=== PATIENT | male | born 1980 | race Caucasian/White ===

== ENCOUNTER 2022-03-27 09:40 | Outpatient (REF) | payer BC, SELFPAY ==
[2022-03-27 10:55] LABS: Appearance Urine CLEAR; Color Urine YELLOW; Glucose Urine UA NEG (NEG); Leukocyte Esterase Urine NEG (NEG); Nitrite Urine NEG (NEG); PH 7.5 (5.0-8.0); Urine Blood NEG (NEG); Urine Ketones NEG (NEG); Urine Protein NEG (NEG-TRACE)
[2022-03-27 11:04] LABS: Hematocrit 42.5 % (42.0-52.0); Hemoglobin 14.3 g/dl (14.0-18.0); Mean Corpuscular HGB Conc 33.6 g/dl (31.0-36.0); Mean Corpuscular Hemoglobin 30.4 pg (27.0-33.0); Mean Corpuscular Volume 90.2 fL (80.0-98.0); Mean Platelet Volume 9.4 fL (9.4-12.4); Platelet Count 262 X10*3/uL (160-400); Red Blood Count 4.71 X10*6/uL (4.60-5.80); White Blood Count 7.9 X10*3/uL (4.8-10.8)
[2022-03-27 11:57] LABS: Thyroid Stimulating Hormone 0.57 uIU/mL (0.32-4.0)
[2022-03-27 12:05] LABS: Alanine Aminotransferase 25 U/L (0-40); Albumin Level 4.4 g/dL (3.5-5.0); Alkaline Phosphatase 66 U/L (39-117); Anion Gap 12 (12-20); Aspartate Amino Transferase 19 U/L (5-37); Bilirubin Direct 0.3 mg/dL (0.0-0.5); Bilirubin Total 0.7 mg/dL (0.0-1.0); Blood Urea Nitrogen 16 mg/dL (9-16); Calcium 9.8 mg/dL (8.4-10.2); Carbon Dioxide 25 mmol/L (22-29); Chloride 106 mmol/L (96-108); Cholesterol 163 mg/dL; Estimated Glomerular Filt Rate > 60; Glucose Random 83 mg/dL (60-115); HDL Cholesterol 62 mg/dL; LDL Cholesterol Calculated 88 mg/dl; Potassium 4.4 mmol/L (3.3-5.1); Sodium 139 mmol/L (135-145); Total Protein 7.3 g/dL (6.5-8.0); Triglycerides 69 mg/dL
== END 2022-03-27 09:41 | disposition home or self-care (01) ==
LOC: HO.LAB 09:40
PROVIDERS: PCP Internal Medicine; Visit Provider Internal Medicine
DX: E78.00 Pure hypercholesterolemia, unspecified (principal); I10 Essential (primary) hypertension
CPT/HCPCS: 36415; 80048; 80061; 80076; 81003; 84443; 85027

== ENCOUNTER 2022-10-03 09:45 | Outpatient (REF) | payer BC, SELFPAY ==
[2022-10-03 11:02] LABS: Hematocrit 44.4 % (42.0-52.0); Hemoglobin 14.6 g/dl (14.0-18.0); Mean Corpuscular HGB Conc 32.9 g/dl (31.0-36.0); Mean Corpuscular Hemoglobin 30.2 pg (27.0-33.0); Mean Corpuscular Volume 91.7 fL (80.0-98.0); Mean Platelet Volume 9.3 fL (9.4-12.4); Platelet Count 270 X10*3/uL (160-400); Red Blood Count 4.84 X10*6/uL (4.60-5.80); Red Cell Distribution Width 11.9 % (11.0-16.0); White Blood Count 7.3 X10*3/uL (4.8-10.8)
[2022-10-03 11:59] LABS: Alanine Aminotransferase 38 U/L (0-40); Albumin Level 4.6 g/dL (3.5-5.0); Alkaline Phosphatase 75 U/L (39-117); Anion Gap 12 (12-20); Aspartate Amino Transferase 19 U/L (5-37); Bilirubin Direct 0.3 mg/dL (0.0-0.5); Bilirubin Total 0.8 mg/dL (0.0-1.0); Blood Urea Nitrogen 12 mg/dL (9-16); Carbon Dioxide 29 mmol/L (22-29); Chloride 102 mmol/L (96-108); Cholesterol 201 mg/dL; Estimated Glomerular Filt Rate > 60; Glucose Random 80 mg/dL (60-115); HDL Cholesterol 59 mg/dL; LDL Cholesterol Calculated 118 mg/dl; Potassium 4.5 mmol/L (3.3-5.1); Sodium 138 mmol/L (135-145); Total Protein 7.4 g/dL (6.5-8.0); Triglycerides 122 mg/dL
== END 2022-10-03 09:46 | disposition home or self-care (01) ==
LOC: HO.LAB 09:45
PROVIDERS: PCP Internal Medicine; Visit Provider Internal Medicine
DX: E78.00 Pure hypercholesterolemia, unspecified (principal); I10 Essential (primary) hypertension
CPT/HCPCS: 36415; 80048; 80061; 80076; 84443; 85027

== ENCOUNTER 2024-01-08 08:33 | Outpatient (AMB) | payer BC, SELFPAY ==
--- NOTE | 2024-01-08 08:37 | A.OFFPC_ITS ---
Vital Signs 01/08/24 08:38 Height 6 ft 2 in Weight 211 lb 2 oz BMI 27.1 BP 120/74 Blood Pressure Location Lt brachial Position Sitting Pulse 64 Pulse Source Pulse Oximeter Pulse Oximetry (%) 95 Oxygen Delivery Method Room Air Intake Visit Reasons: Physical exam Intake Note: Patient is here today for a physical. Spinning Frame Fixer Required: No Nurse Behavioral Health Care: Not Required per policy Accompanied by: Self / Same As Patient Allergies No Known Allergies Allergy (Verified 01/08/24 08:59) Medication List - Last Reconciled 01/08/24 by Jose Maldonado MD atorvastatin 10 mg PO DAILY enalapril maleate 5 mg PO DAILY Tobacco use date assessed: 01/08/24 Dental Screening Dental Screen Date: 01/08/24 Did you have a dental visit in the last 12 months?: No Did you have a dental problem in the last 6 months where you did not have access to dental care?: No Was dental information given to patient?: Patient has dentist HPI Physical exam HPI Details 43-year-old male presents to the office requesting an annual physical. Patient's father was recently diagnosed with prostate cancer. He would also lik e to get an early screening for colon cancer. [facility] Medical History High cholesterol Hypertension Surgical History No pertinent past surgical history Family History Father Prostate cancer Past heart attack Mother Stroke Son In good health Son In good health Son In good health Sister In good health Sister In good health Sister In good health Other Substance use disorder Social History Housing: House Alcohol intake: current Alcohol intake frequency: a few times a week Patient Tobacco Use Status: Never used Tobacco e-Cigarette/Vaping Use: Never Used Second Hand Smoke Exposure: No service: No Current occupational status: employed Current occupation: Contractor Cognitive needs: No Hearing needs: No Vision needs: Yes (glasses) Questionnaire PHQ-9 Over the last 2 weeks, how often have you been bothered by any of the following problems? 1. Little interest or pleasure in doing things: not at all 2. Feeling down, depressed, or hopeless: not at all 3. Trouble falling or staying asleep, or sleeping too much: not at all 4. Feeling tired or having little energy: not at all 5. Poor appetite or overeating: not at all 6. Feeling bad about yourself - or that you are a failure or have let yourself or your family down: not at all 7. Trouble concentrating on things, such as reading the newspaper or watching television: not at all 8. Moving or speaking so slowly that other people could have noticed. Or the opposite - being so fidgety or restless that you have been moving around a lot more than usual: not at all 9. Thoughts that you would be better off or of hurting yourself in some way: not at all Total score: 0 Depression Screening Interpretation: Negative Depression Screening Done: Yes Source: Developed by Drs. Jurgen Gonsales, oNrma Das, Ronni Nur and colleagues, with an educational traci from [employer]. Thrive Questionnaire Date Thrive assessed: 01/08/24 I am a: Patient What is your living situation today?: I have a steady place to live Within the past 12 months, did the food you bought not last and you didn't have the money to get more?: Never true Within the past 12 months, did you worry whether your food would run out before you got money to buy more?: Never true Do you have trouble paying for medicines?: No Do you have trouble getting transportation to medical appointments?: No Do you have trouble paying your heating and electricity bill?: No Do you have trouble taking care of your child, family member or friend?: No Do you have trouble with day-to-day activities such as bathing, preparing meals, shopping, managing finances, etc.?: No Are you currently unemployed and looking for a job?: No Are you interested in more education?: No Currently or been in a relationship where the following occur: no concerns reported THRIVE Score: 0 AUDIT C Alcohol Use Questionnaire (AUDIT-C) 1. How often do you have a drink containing alcohol?: Monthly or less 2. How many drinks containing alcohol do you have on a typical day when you are drinking?: 1 or 2 Total Score: 1 ALYCE-7 AMB Questionnaire ALYCE-7 Date ALYCE - 7 assessed: 01/08/24 Feeling nervous, anxious, or on edge: 0 = Not at all Not being able to stop or control worryin = Not at all Worrying too much about different things: 0 = Not at all Trouble relaxin = Not at all Being so restless that it is hard to sit still: 0 = Not at all Becoming easily annoyed or irritable: 0 = Not at all Feeling afraid as if something awful might happen: 0 = Not at all Total ALYCE-7 score (0-4 normal; 5-9 mild; 10-14 moderate; 15-21 severe): 0 Source: Developed by Drs. Jurgen Gonsales, Norma Das, Ronni Nur and colleagues, with an educational traci from [employer]. Physical exam (Primary Care) Vital Signs: Last Vital Signs Pulse 64 01/08/24 08:38 BP 120/74 01/08/24 08:38 Pulse Ox 95 01/08/24 08:38 Oxygen Delivery Method Room Air 01/08/24 08:38 BMI result Body Mass Index 27.1 Tobacco/Smoking Status: Tobacco use Status Tobacco use date assessed 01/08/24 01/08/24 08:42 Patient Tobacco Use Status Never used Tobacco 01/08/24 08:42 e-Cigarette/Vaping Use Never Used 01/08/24 08:42 PHQ-9: PHQ-9 Score PHQ-9: Total score 0 01/08/24 08:42 Depression Screening Interpretation: Negative Thrive Assessment: Date of Thrive Assessment Date Thrive assessed 01/08/24 01/08/24 08:42 Currently or been in a relationship where the following occur: no concerns reported Const General: cooperative and healthy appearing Nutritional Appearance: well nourished Orientation/consciousness: patient oriented x3 Limitations: no limitations HENMT Head: Yes normal to inspection Eyes General: appearance normal, both eyes and all related structures Neck Neck: Yes normal visual inspection Chest Chest palpation & inspection: normal palpation of entire chest wall Resp Effort & Inspection: normal respiratory effort Other: Scrotum: Normal. Testicles: Normal. Neuro General: patient oriented x3 Assessment and Plan Assessment & Plan (1) Hypertension: Code(s): I10 - Essential (primary) hypertension Plan: Blood pressure in range. Continue current medications. (2) High cholesterol: Code(s): E78.00 - Pure hypercholesterolemia, unspecified Plan: Blood work has been ordered. (3) Annual physical exam: Code(s): Z00.00 - Encounter for general adult medical examination without abnormal findings Plan: Will call with results of blood work. Orders: Orders Complete Blood Count no Diff Today E78.00 - Pure hypercholesterolemia, unspecified, I10 - Essential (primary) hypertension Liver Panel Today E78.00 - Pure hypercholesterolemia, unspecified, I10 - Essential (primary) hypertension Basic Metabolic Panel Today E78.00 - Pure hypercholesterolemia, unspecified, I10 - Essential (primary) hypertension Lipid Panel Today E78.00 - Pure hypercholesterolemia, unspecified, I10 - Essential (primary) hypertension Prostate Specific Antigen Scr Today E78.00 - Pure hypercholesterolemia, unspecified, I10 - Essential (primary) hypertension UA and rflx microscopic Today E78.00 - Pure hypercholesterolemia, unspecified, I10 - Essential (primary) hypertension Thyroid Stimulating Hormone Today E78.00 - Pure hypercholesterolemia, unspecified, I10 - Essential (primary) hypertension Referrals Gastroenterology Referral Z12.11 - Encounter for screening for malignant neoplasm of colon Coding Level of Care Code Est Pt Prev Care 40-64y(21957) Diagnoses Hypertension I10 High cholesterol E78.00 Annual physical exam Z00.00
[2024-01-08 08:38] VITALS: BP 120/74; PULSE 64; O2SAT 95; BMI 27.1
== END 2024-01-08 08:51 | disposition home or self-care (01) ==
PROVIDERS: PCP Internal Medicine; Visit Provider Internal Medicine
DX: I10 Essential (primary) hypertension (principal); E78.00 Pure hypercholesterolemia, unspecified; Z00.00 Encounter for general adult medical examination without abnormal findings
CPT/HCPCS: 99396

== ENCOUNTER 2024-01-08 09:05 | Outpatient (REF) | payer BC, SELFPAY ==
[2024-01-08 09:38] LABS: Hematocrit 44.7 % (42.0-52.0); Mean Corpuscular HGB Conc 33.6 g/dl (31.0-36.0); Mean Corpuscular Hemoglobin 29.7 pg (27.0-33.0); Mean Corpuscular Volume 88.5 fL (80.0-98.0); Mean Platelet Volume 8.9 fL (9.4-12.4); Platelet Count 253 X10*3/uL (160-400); Red Blood Count 5.05 X10*6/uL (4.60-5.80); Red Cell Distribution Width 12.2 % (11.0-16.0); White Blood Count 6.7 X10*3/uL (4.8-10.8)
[2024-01-08 10:31] LABS: Appearance Urine Clear; Color Urine Yellow; Glucose Urine UA Negative (Negative); Leukocyte Esterase Urine Negative (Negative); Nitrite Urine Negative (Negative); PH 7.5 (5.0-9.0); Urine Blood Negative (Negative); Urine Ketones Negative (Negative); Urine Protein Negative (Neg-Trace)
[2024-01-08 10:56] LABS: Prostate Specific Antigen Scr 0.76 ng/mL (<0.05-4.0)
[2024-01-08 10:57] LABS: Alanine Aminotransferase 35 U/L (0-40); Albumin Level 4.6 g/dL (3.5-5.0); Alkaline Phosphatase 68 U/L (39-117); Anion Gap 11 (12-20); Aspartate Amino Transferase 21 U/L (5-37); Bilirubin Direct 0.2 mg/dL (0.0-0.5); Blood Urea Nitrogen 16 mg/dL (9-16); Calcium 9.8 mg/dL (8.4-10.2); Carbon Dioxide 25 mmol/L (22-29); Chloride 107 mmol/L (96-108); Cholesterol 201 mg/dL (<200); Estimated Glomerular Filt Rate > 60; Glucose Random 89 mg/dL (60-115); HDL Cholesterol 63 mg/dL (>40); LDL Cholesterol Calculated 118 mg/dL (<100); Potassium 4.1 mmol/L (3.3-5.1); Sodium 139 mmol/L (135-145); Total Protein 7.5 g/dL (6.5-8.0); Triglycerides 101 mg/dL (<150)
[2024-01-08 11:09] LABS: Bilirubin Total 0.8 mg/dL (0.0-1.0); Thyroid Stimulating Hormone 0.73 uIU/mL (0.32-4.0)
== END 2024-01-08 09:06 | disposition home or self-care (01) ==
LOC: HO.LAB 09:05
PROVIDERS: PCP Internal Medicine; Visit Provider Internal Medicine
DX: Z12.5 Encounter for screening for malignant neoplasm of prostate (principal); I10 Essential (primary) hypertension; E78.00 Pure hypercholesterolemia, unspecified
CPT/HCPCS: 36415; 80048; 80061; 80076; 81003; 84153; 84443; 85027

== ENCOUNTER 2024-03-30 07:26 | Outpatient (AMB) | payer BC, SELFPAY ==
--- NOTE | 2024-03-30 07:39 | A.OFFVIS_ITS ---
Vital Signs 03/30/24 07:41 Height 6 ft 2 in Weight 202 lb BMI 25.9 BP 124/70 Blood Pressure Location Lt brachial Position Sitting Pulse 70 Intake Visit Reasons: Colonoscopy screening Intake Note: Patient new consult for 1st pre colonoscopy screening. Patient denies any GI issues. Correction Officer Head Required: No Allergies No Known Allergies Allergy (Verified 03/30/24 07:38) Medication List - Last Reconciled 03/30/24 by Naila Nina PA-C atorvastatin 10 mg PO DAILY enalapril maleate 5 mg PO DAILY HPI Comments Details: A 44 y/o male referred for index screening colonoscopy Normal bowels- Appetite good No respiratory or cardiac issues Works full-time contractor No nausea, vomiting, abdominal pain, hematemesis, hematochezia fever or chills No known family history of GI cancers PFSH Medical History (Updated 03/30/24 @ 08:44 by Naila Nina PA-C) High cholesterol Hypertension Surgical History Hx of removal of cyst History of vasectomy No pertinent past surgical history Family History Father Prostate cancer Past heart attack Mother Stroke Son In good health Son In good health Son In good health Sister In good health Sister In good health Sister In good health Other Substance use disorder Social History Housing: House Alcohol intake: current Alcohol intake frequency: a few times a week Patient Tobacco Use Status: Never used Tobacco e-Cigarette/Vaping Use: Never Used Second Hand Smoke Exposure: No service: No Current occupational status: employed Current occupation: Contractor Cognitive needs: No Hearing needs: No Vision needs: Yes (glasses) Review of Systems Const All systems reviewed & are unremarkable except as noted in HPI and below Card Denies chest pain and Denies dyspnea Resp Denies dyspnea GI Denies abdominal pain, Denies change in bowel habits and Denies heartburn Physical Exam Vital Signs: Last Vital Signs Pulse 70 03/30/24 07:41 BP 124/70 03/30/24 07:41 BMI result Body Mass Index 25.9 Const General: cooperative, healthy appearing, comfortable and no acute distress Orientation/consciousness: patient oriented x3 Limitations: no limitations Eyes Sclerae: sclerae normal Resp Effort & Inspection: normal respiratory effort and able to speak in complete sentences Auscultation: clear to auscultation bilaterally, no rales, no rhonchi and no wheezes Cardio Rate: regular rate Rhythm: regular rhythm Heart sounds: S1 normal heart sound present and S2 normal heart sound present GI Palpation (GI): Soft to palpation and nontender Auscultation: normal bowel sounds Skin General skin exam: no rashes or lesions noted Neuro General: patient oriented x3 Extrem General: Yes full ROM Psych Appearance: grossly normal and well kempt Mental Status: mental status grossly normal Speech and movement: Normal speech and movement present and Clear speech present Affect: normal affect Attitude: cooperative Thought process: Normal thought process present Thought content: Normal thought content present Insight: Good insight present (Psych) Judgement: Good judgement present (Psych) Assessment & Plan Assessment & Plan (1) Encounter for screening colonoscopy: Comment: Discussed indication, procedure, rare risks, need for escorted due to anesthesia, and prep Code(s): Z12.11 - Encounter for screening for malignant neoplasm of colon Category: Medical Plan: Index screening colonoscopy MiraLax Gatorade prep Plan Index screening colonoscopy MiraLax Gatorade prep Orders: Orders Colonoscopy - GI Use Only Today Z12.11 - Encounter for screening for malignant neoplasm of colon Medications: New bisacodyl (Dulcolax (bisacodyl)) Day before procedure @ 12 noon Take 4 tablets by mouth followed by large glass of water 20 mg (4 x 5 mg) PO ONCE PRN 4 tabs 0RF colonoscopy prep 1 day Z12.11 - Encounter for screening for malignant neoplasm of colon polyethylene glycol 3350 (Miralax) Take as directed by mouth the day before your procedure. 238 grams PO ONCE PRN 238 grams 0RF laxative effect 1 day Patient Instructions: Index screening colonoscopy MiraLax Gatorade prep, reviewed literature given Encouraged to call questions or concerns Coding Level of Care Code New Pt Level 3 (04090) Diagnoses Encounter for screening colonoscopy Z12.11 Time Spent (min) 25
[2024-03-30 07:41] VITALS: BP 124/70; PULSE 70; BMI 25.9
== END 2024-03-30 08:59 | disposition home or self-care (01) ==
PROVIDERS: PCP Internal Medicine; Visit Provider Physician Assistant
DX: Z01.818 Encounter for other preprocedural examination (principal); Z12.11 Encounter for screening for malignant neoplasm of colon
CPT/HCPCS: S0285

== ENCOUNTER → 2024-03-30 07:26 | Outpatient (BNVA) | payer BC, SELFPAY | PROVIDERS: PCP Internal Medicine; Visit Provider Physician Assistant ==

== ENCOUNTER 2024-07-15 08:15 | Outpatient (AMB) | payer BC, SELFPAY ==
--- NOTE | 2024-07-15 08:25 | A.OFFPC_ITS ---
Vital Signs 07/15/24 08:27 Height 6 ft 2 in Weight 204 lb BMI 26.2 BP 128/86 Blood Pressure Location Lt brachial Position Sitting Pulse 63 Pulse Source Pulse Oximeter Pulse Oximetry (%) 96 Oxygen Delivery Method Room Air Intake Visit Reasons: 6mth f/u Medical Records Analyst Required: No Accompanied by: Self / Same As Patient Allergies No Known Allergies Allergy (Verified 07/15/24 08:27) Tobacco use date assessed: 01/08/24 Dental Screening Dental Screen Date: 01/08/24 HPI 6mth f/u HPI Details 44-year-old male presents to the office to discuss his chronic medical conditions. Patient is compliant with medications and reporting no side effects. Able to function and do all activities of daily living. Exercises regularly. [facility], [facility] Medical History High cholesterol Hypertension Surgical History Hx of removal of cyst History of vasectomy No pertinent past surgical history Family History Father Prostate cancer Past heart attack Mother Stroke Son In good health Son In good health Son In good health Sister In good health Sister In good health Sister In good health Other Substance use disorder Social History Housing: House Alcohol intake: current Alcohol intake frequency: a few times a week Patient Tobacco Use Status: Never used Tobacco e-Cigarette/Vaping Use: Never Used Second Hand Smoke Exposure: No service: No Current occupational status: employed Current occupation: Contractor Current occupational exposures/hazards: No Cognitive needs: No Hearing needs: No Vision needs: Yes (glasses) Questionnaire Thrive Questionnaire Date Thrive assessed: 01/08/24 ALYCE-7 AMB Questionnaire ALYCE-7 Date ALYCE - 7 assessed: 01/08/24 Source: Developed by Drs. Jurgen Gonsales, Norma Das, Ronni Nur and colleagues, with an educational traci from [employer]. Physical exam (Primary Care) Vital Signs: Last Vital Signs Pulse 63 07/15/24 08:27 BP 128/86 07/15/24 08:27 Pulse Ox 96 07/15/24 08:27 Oxygen Delivery Method Room Air 07/15/24 08:27 BMI result Body Mass Index 26.2 Tobacco/Smoking Status: Tobacco use Status Tobacco use date assessed 01/08/24 07/15/24 08:27 Patient Tobacco Use Status Never used Tobacco 07/15/24 08:27 e-Cigarette/Vaping Use Never Used 07/15/24 08:27 Thrive Assessment: Date of Thrive Assessment Date Thrive assessed 01/08/24 07/15/24 08:27 Const General: cooperative and healthy appearing Nutritional Appearance: well nourished Orientation/consciousness: patient oriented x3 Limitations: no limitations HENMT Head: Yes normal to inspection Eyes General: appearance normal, both eyes and all related structures Neck Neck: Yes normal visual inspection Chest Chest palpation & inspection: normal palpation of entire chest wall Resp Effort & Inspection: normal respiratory effort Neuro General: patient oriented x3 Assessment and Plan Assessment & Plan (1) High cholesterol: Code(s): E78.00 - Pure hypercholesterolemia, unspecified Plan: Encouraged compliance with medications, diet and exercise. BW has been ordered. Will call with results and adjust statin dosage accordingly. (2) Hypertension: Code(s): I10 - Essential (primary) hypertension Plan: BP is in range. Importance of diet and exercise emphasized. Blood work has been ordered. Will call with results Coding Level of Care Code Est Pt Level 4 (20684) Complex EM visit Add On G2211 Diagnoses High cholesterol E78.00 Hypertension I10
[2024-07-15 08:27] VITALS: BP 128/86; PULSE 63; O2SAT 96; BMI 26.2
== END 2024-07-15 08:39 | disposition home or self-care (01) ==
PROVIDERS: PCP Internal Medicine; Visit Provider Internal Medicine
DX: E78.00 Pure hypercholesterolemia, unspecified (principal); I10 Essential (primary) hypertension
CPT/HCPCS: 99214

== ENCOUNTER 2024-09-07 07:10 | Day surgery (SDC) | payer BC, SELFPAY ==
[2024-09-07 08:00] VITALS: BMI 26.9
[2024-09-07 08:09] VITALS: BP 129/87; PULSE 73; RESP 16; TEMP 36.6; O2SAT 98
--- NOTE | 2024-09-07 08:21 | HO.ANESPROP2 ---
HPI - Anesthesia Eval Consult details Narrative: 44 yo M presenting for colonoscopy [facility] Active Problems Active Problems: All Active Problems Encounter for screening colonoscopy (Acute) Annual physical exam (Acute) High cholesterol (Acute) Hypertension (Acute) Past Medical History Medical History High cholesterol Hypertension Family History Family History Father Prostate cancer Past heart attack Mother Stroke Son In good health Son In good health Son In good health Sister In good health Sister In good health Sister In good health Other Substance use disorder Family history of problems with anesthesia: No Surgical History Surgical History (Updated 09/07/24 @ 07:59 by Merry Petty RN) Hx of removal of cyst History of vasectomy History of Problems with Anesthesia: No Social History Social History Housing: House Alcohol intake: current Alcohol intake frequency: a few times a week Patient Tobacco Use Status: Never used Tobacco e-Cigarette/Vaping Use: Never Used Second Hand Smoke Exposure: No Use of substances other than those prescribed or required for medical reasons: Yes Substance Use Type Other:: SOMETIMES Are you DNR?: No Advance Directives: No Advance Directives Information Provided: Yes Advance Directives on File: No Recently lost weight without trying: No Nutrition Risks: No Nutritional Risk Poor oral hygiene: No service: No Current occupational status: employed Current occupation: Contractor Current occupational exposures/hazards: No Cognitive needs: No Hearing needs: No Vision needs: Yes (glasses) Meds Allergies Allergy/AdvReac Type Severity Reaction Status Date / Time No Known Allergies Allergy Verified 07/15/24 08:27 Active Medications: Current Medications Lactated Ringer's (Lr) 1,000 mls @ 80 mls/hr IVCONT .[id number] JHONATAN Exam Exam Date and Time: 09/07/24 0821 Height,Weight and Vital Signs: Height 6 ft 1 in Weight 92.646 kg Last Vital Signs Temp 97.9 F 09/07/24 08:09 Pulse 73 09/07/24 08:09 Resp 16 09/07/24 08:09 BP 129/87 09/07/24 08:09 Pulse Ox 98 09/07/24 08:09 O2 Del Method Room Air 09/07/24 08:09 Airway Mallampati Class: I TM Dist: >3cm Neck ROM: Full Loose/Missing/Broken Teeth: No (patient denies any loose or broken teeth) Heart: S1S2 Lungs: CTAB Assessment and Plan Assessment Anesthesia Assessment: Anesthesia Plan Discussed and Chart Reviewed Final Anesthetic Review Family History of Problems with Anesthesia: No History of Problems with Anesthesia: No NPO: Yes ASA Class: II Final Preanesthetic Review: No Changes in Pt Med Stat, Meds/Allgs Chart Reviewed, Consent Obtained/Reviewed and Anes Risks/Benef Reviewed Patient Risk: Low Procedure Risk: Low Anesthetic Plan Anesthetic Plan: MAC: and Agree w/ Assess. and Plan Disposition: Standard PACU
[2024-09-07] MEDS: Lactated Ringers 1,000 ML 80 ML IVCONT (08:29)
--- NOTE | 2024-09-07 08:47 | MHC.SHP ---
Pre-Procedural Eval Section A - 24 Hr Update-Section A only Date of Service: 09/07/24 Section B - Complete if H&P > 30 days Chief Complaint: Encounter for screening for malignant neoplasm of Details of Present Illness: High cholesterol Hypertension Surgical History Hx of removal of cyst History of vasectomy No pertinent past surgical history Present Medications: see Short Stay Collaborative assessment Allergies: Allergies Allergy/AdvReac Type Severity Reaction Status Date / Time No Known Allergies Allergy Verified 07/15/24 08:27 Review of Systems Review of Systems Comment: Ten point ROS negative Exam Exam Comment: Gen appear: No acute distress HEENT: no icterus Chest: No overt resp distress Abd: soft, nontender, nondistended Psych: Stable affect, answering questions appropriately Neuro: A/Ox3 noted to move all extremities spontaneously Ext: no peripheral edema Plan Diagnosis/Plan: Unchanged I have reviewed the history and physical and performed a pertinent physical examination on my patient. No changes have occurred unless specified. Time Spent With Patient Time: Total time managing care of this patient today ____ minutes.
--- NOTE | 2024-09-07 09:22 | P.OPN-COLO_ITS ---
Colonoscopy Operative Note Operative Note Date of Service: 09/07/24 Narrative: Procedure: Colonoscopy Indication: Screening Endoscopist: Karly Dorantes MD Anesthesia Provider: Christen Joseph CRNA Anesthesia type: MAC Instrument: Olympus [id number] Consent: Indication, risks vs benefits, and alternatives were discussed with the patient who gave written informed consent to proceed. EKG, pulse, pulse oximetry and blood pressure were monitored throughout the procedure. Please see anesthesia flowsheet. Procedure: The patient was brought to the procedure room and placed in the left lateral decubitus position. IV medications were administered by the anesthesia provider in attendance. A digital rectal exam was performed which was abnormal due to finding of hemorrhoids. A distal attachment cap was affixed to the tip of the colonoscope which was then inserted through the anus and advanced through the colon to the cecum at 75 cm,and terminal ileum. Appendiceal orifice and ileocecal valve were identified. Mucosa was carefully examined under high definition white light as the instrument was slowly withdrawn in a retrograde panoramic fashion. Retroflexion was performed in ascending colon and rectum. The procedure was not difficult. There were no immediate obvious complications. The quality of the prep was BBPS: 3+2+3 = adequate Withdrawal time 8 minutes. Limitations: No limitations. Findings: Mucosa: Normal to cecum and terminal ileum. Protruding lesions: * 1 sessile polyp of size 2 mm in sigmoid colon. Cold forceps polypectomy was performed. The polyp was completely removed and retrieved. * Small internal hemorrhoids. Impression: 1. Normal colon and terminal ileum mucosa 2. Total of 1 polyp removed 3. External and internal hemorrhoids Recommendations: - Follow path results. - Repeat colonoscopy in 7-10 years if polyp is an adenoma.
[2024-09-07 09:25] VITALS: BP 115/75; PULSE 83; RESP 16; TEMP 36.9; O2SAT 97
[2024-09-07 09:40] VITALS: BP 122/80; PULSE 72; RESP 14; TEMP 36.4; O2SAT 98
== END 2024-09-07 10:03 | disposition home or self-care (01) ==
PROVIDERS: PCP Internal Medicine; Visit Provider Internal Medicine
PROC: 0DJD8ZZ Inspection of Lower Intestinal Tract, Via Natural or Artificial Opening Endoscopic (ICD-10-PCS; CPT 45378; principal; 2024-09-07 09:10)
DX: Z12.11 Encounter for screening for malignant neoplasm of colon (principal); D12.5 Benign neoplasm of sigmoid colon; K64.8 Other hemorrhoids; K64.4 Residual hemorrhoidal skin tags; I10 Essential (primary) hypertension; E78.5 Hyperlipidemia, unspecified
CPT/HCPCS: 45380; 88305; J2003; J2250; J2704

== ENCOUNTER → 2024-09-07 07:10 | Outpatient (BNV) | payer BC, SELFPAY | PROVIDERS: PCP Internal Medicine; Visit Provider Internal Medicine | DX: Z12.11 Encounter for screening for malignant neoplasm of colon (principal); D12.5 Benign neoplasm of sigmoid colon; K64.8 Other hemorrhoids | CPT/HCPCS: 45380 ==

== ENCOUNTER 2025-01-13 08:18 | Outpatient (REF) | payer BC, SELFPAY ==
[2025-01-13 09:40] LABS: Hemoglobin 14.9 g/dl (14.0-18.0); Mean Corpuscular HGB Conc 34.7 g/dl (31.0-36.0); Mean Corpuscular Hemoglobin 30.6 pg (27.0-33.0); Mean Corpuscular Volume 88.3 fL (80.0-98.0); Mean Platelet Volume 9.2 fL (9.4-12.4); Platelet Count 253 X10*3/uL (160-400); Red Blood Count 4.87 X10*6/uL (4.60-5.80); White Blood Count 6.4 X10*3/uL (4.8-10.8)
[2025-01-13 09:47] LABS: Appearance Urine Clear; Color Urine Yellow; Glucose Urine UA Negative (Negative); Leukocyte Esterase Urine Negative (Negative); Nitrite Urine Negative (Negative); Urine Blood Negative (Negative); Urine Ketones Negative (Negative); Urine Protein Negative (Neg-Trace)
[2025-01-13 10:14] LABS: Alanine Aminotransferase 32 U/L (0-40); Albumin Level 4.5 g/dL (3.5-5.0); Alkaline Phosphatase 66 U/L (39-117); Anion Gap 9 (12-20); Aspartate Amino Transferase 25 U/L (5-37); Bilirubin Direct 0.3 mg/dL (0.0-0.5); Bilirubin Total 0.8 mg/dL (0.0-1.0); Blood Urea Nitrogen 14 mg/dL (9-16); Calcium 9.7 mg/dL (8.4-10.2); Carbon Dioxide 27 mmol/L (22-29); Chloride 108 mmol/L (96-108); Cholesterol 176 mg/dL (<200); Estimated Glomerular Filt Rate > 60; Glucose Random 86 mg/dL (60-115); HDL Cholesterol 70 mg/dL (>40); LDL Cholesterol Calculated 89 mg/dL (<100); Potassium 4.2 mmol/L (3.3-5.1); Sodium 140 mmol/L (135-145); Total Protein 7.6 g/dL (6.5-8.0); Triglycerides 85 mg/dL (<150)
[2025-01-13 10:34] LABS: Thyroid Stimulating Hormone 0.42 uIU/mL (0.32-4.0)
== END 2025-01-13 08:19 | disposition home or self-care (01) ==
LOC: HO.LAB 08:18
PROVIDERS: PCP Internal Medicine; Visit Provider Internal Medicine
DX: E78.00 Pure hypercholesterolemia, unspecified (principal); I10 Essential (primary) hypertension
CPT/HCPCS: 36415; 80048; 80061; 80076; 81003; 84443; 85027

== ENCOUNTER 2025-01-13 08:18 | Outpatient (AMB) | payer BC, SELFPAY ==
--- NOTE | 2025-01-13 08:31 | A.OFFPC_ITS ---
Vital Signs 01/13/25 08:33 Height 6 ft 1 in Weight 207 lb BMI 27.3 BP 120/72 Blood Pressure Location Lt brachial Position Sitting Pulse 61 Pulse Source Pulse Oximeter Temp 97.7 F Temp Source Temporal Artery Scan Pulse Oximetry (%) 96 Oxygen Delivery Method Room Air Intake Visit Reasons: 6 month follow up Intake Note: Patient is here to follow up on HTN, High cholesterol. Hole Digger Required: No Software Engineering Associate Manager: Not Required per policy Accompanied by: Self / Same As Patient Allergies No Known Allergies Allergy (Verified 01/13/25 08:33) Tobacco use date assessed: 01/13/25 Dental Screening Dental Screen Date: 01/13/25 Did you have a dental visit in the last 12 months?: No Did you have a dental problem in the last 6 months where you did not have access to dental care?: No Was dental information given to patient?: No PFSH Medical History High cholesterol Hypertension Surgical History History of colonoscopy with polypectomy (~09/07/24) Hx of removal of cyst History of vasectomy Family History Father Prostate cancer Past heart attack Mother Stroke Son In good health Son In good health Son In good health Sister In good health Sister In good health Sister In good health Other Substance use disorder Social History Housing: House Alcohol intake: current Alcohol intake frequency: a few times a week Patient Tobacco Use Status: Never used Tobacco e-Cigarette/Vaping Use: Never Used Second Hand Smoke Exposure: No service: No Current occupational status: employed Current occupation: Contractor Current occupational exposures/hazards: No Cognitive needs: No Hearing needs: No Vision needs: Yes (glasses) Questionnaire PHQ-9 Over the last 2 weeks, how often have you been bothered by any of the following problems? 1. Little interest or pleasure in doing things: not at all 2. Feeling down, depressed, or hopeless: not at all 3. Trouble falling or staying asleep, or sleeping too much: not at all 4. Feeling tired or having little energy: not at all 5. Poor appetite or overeating: not at all 6. Feeling bad about yourself - or that you are a failure or have let yourself or your family down: not at all 7. Trouble concentrating on things, such as reading the newspaper or watching television: not at all 8. Moving or speaking so slowly that other people could have noticed. Or the opposite - being so fidgety or restless that you have been moving around a lot more than usual: not at all 9. Thoughts that you would be better off or of hurting yourself in some way: not at all Total score: 0 Depression Screening Interpretation: Negative Depression Screening Done: Yes Source: Developed by Drs. Jurgen Gonsales, Norma Das, Ronni Nur and colleagues, with an educational traci from [employer]. Thrive Questionnaire Date Thrive assessed: 01/13/25 I am a: Patient What is your living situation today?: I have a steady place to live Within the past 12 months, did the food you bought not last and you didn't have the money to get more?: Never true Within the past 12 months, did you worry whether your food would run out before you got money to buy more?: Never true Do you have trouble paying for medicines?: No Do you have trouble getting transportation to medical appointments?: No Do you have trouble paying your heating and electricity bill?: No Do you have trouble taking care of your child, family member or friend?: No Do you have trouble with day-to-day activities such as bathing, preparing meals, shopping, managing finances, etc.?: No Are you currently unemployed and looking for a job?: No Are you interested in more education?: No Please select the resources that you would like help with: None Currently or been in a relationship where the following occur: No concerns reported THRIVE Score: 0 AUDIT C Alcohol Use Questionnaire (AUDIT-C) 1. How often do you have a drink containing alcohol?: Monthly or less 2. How many drinks containing alcohol do you have on a typical day when you are drinking?: 1 or 2 Total Score: 1 ALYCE-7 AMB Questionnaire ALYCE-7 Date ALYCE - 7 assessed: 01/13/25 Feeling nervous, anxious, or on edge: 0 = Not at all Not being able to stop or control worryin = Not at all Worrying too much about different things: 0 = Not at all Trouble relaxin = Not at all Being so restless that it is hard to sit still: 0 = Not at all Becoming easily annoyed or irritable: 0 = Not at all Feeling afraid as if something awful might happen: 0 = Not at all Total ALYCE-7 score (0-4 normal; 5-9 mild; 10-14 moderate; 15-21 severe): 0 Source: Developed by Drs. Jurgen Gonsales, Norma Das, Ronni Nur and colleagues, with an educational traci from [employer]. Physical exam (Primary Care) Vital Signs: Last Vital Signs Temp 97.7 F 01/13/25 08:33 Pulse 61 01/13/25 08:33 BP 120/72 01/13/25 08:33 Pulse Ox 96 01/13/25 08:33 Oxygen Delivery Method Room Air 01/13/25 08:33 BMI result Body Mass Index 27.3 Tobacco/Smoking Status: Tobacco use Status Tobacco use date assessed 01/13/25 01/13/25 08:37 Patient Tobacco Use Status Never used Tobacco 01/13/25 08:37 e-Cigarette/Vaping Use Never Used 01/13/25 08:37 PHQ-9: PHQ-9 Score PHQ-9: Total score 0 01/13/25 08:37 Depression Screening Interpretation: Negative Thrive Assessment: Date of Thrive Assessment Date Thrive assessed 01/13/25 01/13/25 08:37 Currently or been in a relationship where the following occur: No concerns reported Coding Level of Care Code Est Pt Level 4 (69583) Complex EM visit Add On G2211 Diagnoses Hypertension I10 High cholesterol E78.00 Assessment & Plan Assessment & Plan (1) Hypertension: Code(s): I10 - Essential (primary) hypertension Category: Medical Plan: BP in range. Continue meds at same dosage (2) High cholesterol: Code(s): E78.00 - Pure hypercholesterolemia, unspecified Category: Medical Plan: Elevated Chol, continue meds at same dosage. Plan History of Present Illness The patient is a 44-year-old male presenting for a wellness visit. He has a history of hypercholesterolemia, which he manages with lifestyle changes and pharmacological treatment. He faithfully adheres to his medication regimen. The patient underwent a colonoscopy at age 43, where one polyp was excised. This procedure occurred last September, and follow-up was recommended after seven years. He denies any symptoms such as abdominal pain or gastrointestinal disturbances at this time. 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 - He acknowledges a decrease in exercise frequency due to administrative work duties. - He expresses the intention to increase gym attendance to establish a routine for better physical fitness. Review of Systems - Gastrointestinal: Denies abdominal pain. Physical Exam General: Cooperative and healthy appearing Nutritional Appearance: Well nourished Orientation/consciousness: Patient oriented x3 Limitations: No limitations Head: Normal to inspection General: Appearance normal, both eyes and all related structures Neck: Normal visual inspection Chest: Normal palpation of entire chest wall Respiratory: Normal respiratory effort Neurology: Patient oriented x3 Results - Labs: Blood work pending completion. - Tests and Diagnostics: Colonoscopy performed last September, a single polyp was excised. Plan During this wellness visit, I reviewed the patient's management of hypercholesterolemia and addressed the history of colonic polyp. The patient is adhering to medication and lifestyle recommendations for cholesterol management. Blood tests, including fasting blood work, remain part of ongoing monitoring efforts. Previous colonoscopy results identified a single polyp, and surveillance colonoscopy is scheduled in seven years as advised. We discussed enhancing exercise habits as part of his healthcare plan to foster improved fitness and cardiovascular health. Continued adherence to regular check-ups will ensure proactive health maintenance. Patient was informed and verbally consented to the use of an ambient scribe for clinic note documentation during this visit. Discussion Notes I reviewed with the patient the importance of maintaining his current cholesterol management regimen, with an emphasis on regular blood monitoring through scheduling of blood work. We discussed the results of his previous colonoscopy that identified one polyp, which was successfully removed, and I reiterated the recommendation to have another colonoscopy in seven years for routine surveillance. Contrasting his work-related decrease in physical activity, we discussed potential benefits of consistent exercise on health, planning for lifestyle adjustments to include more active routines. Follow-up was advised to assess ongoing wellness and ensure sustained health outcomes. Patient Instructions - Continue with current medications as prescribed for cholesterol management. - Schedule and complete pending fasting blood work. - Plan to undergo a follow-up colonoscopy in seven years. - Incorporate regular exercise into daily routine to improve overall fitness. - Return for regular wellness visits for ongoing health assessment and monitoring. Orders: Orders Basic Metabolic Panel Today E78.00 - Pure hypercholesterolemia, unspecified, I10 - Essential (primary) hypertension Liver Panel Today E78.00 - Pure hypercholesterolemia, unspecified, I10 - Essential (primary) hypertension Thyroid Stimulating Hormone Today E78.00 - Pure hypercholesterolemia, unspecified, I10 - Essential (primary) hypertension UA and rflx microscopic Today E78.00 - Pure hypercholesterolemia, unspecified, I10 - Essential (primary) hypertension Complete Blood Count no Diff Today E78.00 - Pure hypercholesterolemia, unspecified, I10 - Essential (primary) hypertension Lipid Panel Today E78.00 - Pure hypercholesterolemia, unspecified, I10 - Essential (primary) hypertension
[2025-01-13 08:33] VITALS: BP 120/72; PULSE 61; TEMP 36.5; O2SAT 96; BMI 27.3
== END 2025-01-13 08:58 | disposition home or self-care (01) ==
PROVIDERS: PCP Internal Medicine; Visit Provider Internal Medicine
DX: I10 Essential (primary) hypertension (principal); E78.00 Pure hypercholesterolemia, unspecified

== ENCOUNTER 2025-08-18 08:05 | Outpatient (REF) | payer BC, SELFPAY ==
[2025-08-18 09:56] LABS: Hematocrit 43.7 % (42.0-52.0); Hemoglobin 14.4 g/dl (14.0-18.0); Mean Corpuscular HGB Conc 33.0 g/dl (31.0-36.0); Mean Corpuscular Hemoglobin 29.9 pg (27.0-33.0); Mean Corpuscular Volume 90.7 fL (80.0-98.0); NRBC Abs Auto 0.000 X10*3/uL (0.0-0.012); NRBC Pct Auto 0.0 /100WBC (0.0-0.2); Platelet Count 261 X10*3/uL (160-400); Red Blood Count 4.82 X10*6/uL (4.60-5.80); White Blood Count 6.6 X10*3/uL (4.8-10.8)
[2025-08-18 10:31] LABS: Appearance Urine Clear; Glucose Urine UA Negative (Negative); PH 7.0 (5.0-9.0); Specific Gravity - Urine <= 1.005 (1.005-1.025)
[2025-08-18 11:24] LABS: Alanine Aminotransferase 49 U/L (0-40); Albumin Level 4.7 g/dL (3.5-5.0); Alkaline Phosphatase 62 U/L (39-117); Anion Gap 11 (12-20); Aspartate Amino Transferase 28 U/L (5-37); Blood Urea Nitrogen 17 mg/dL (9-16); Calcium 9.6 mg/dL (8.4-10.2); Carbon Dioxide 27 mmol/L (22-29); Chloride 108 mmol/L (96-108); Cholesterol 205 mg/dL (<200); Estimated Glomerular Filt Rate > 60; HDL Cholesterol 60 mg/dL (>40); Potassium 4.6 mmol/L (3.3-5.1); Sodium 141 mmol/L (135-145); Thyroid Stimulating Hormone 0.92 uIU/mL (0.32-4.0); Total Protein 7.2 g/dL (6.5-8.0)
[2025-08-18 12:16] LABS: Triglycerides 128 mg/dL (<150)
== END 2025-08-18 08:06 | disposition home or self-care (01) ==
LOC: HO.LAB 08:05
PROVIDERS: PCP Internal Medicine; Visit Provider Internal Medicine
DX: I10 Essential (primary) hypertension (principal); E78.00 Pure hypercholesterolemia, unspecified; Z23 Encounter for immunization
CPT/HCPCS: 36415; 80048; 80061; 80076; 81003; 84443; 85027; 90471; 90656; 96127

== ENCOUNTER 2025-08-18 08:05 | Outpatient (AMB) | payer BC, SELFPAY ==
--- OUTSIDE RECORDS SUMMARY | 2025-08-18 08:11 | XMS_ITS | Clinical Summary ---
Author Organization [facility] Address [address] [place] [phone] Phone Care Team Providers Care K 9 Police Officer Name Role Phone Jose Maldonado MD Primary Care Provid er Allergies No known active allergies Medications atorvastatin (LIPITOR) 10 MG tablet Take 1 tablet by mouth every morning. 01/28/2025 Active enalapril (VASOTEC) 5 MG tablet Take 1 tablet by mouth every morning. 01/28/2025 Active Active Problems Problem Noted Date Diagnosed Date Hypertensive disorder 02/07/2009 Overview (12/23/2014): Hypertensive disorder Family History Medical History Relation Comments Hypertension Father hypertension Uncoded Family History Father elevated cholesterol Stroke Mother cerebrovascular accident Relation Status Comments Father Alive Mother Alive Social History Tobacco Use Types Packs/Day Years Used Date Smoking Tobacco: Never Smokeless Tobacco: Never Alcohol Use Standard Drinks/Week Comments Yes 0 (1 standard drink = 0.6 oz pur e alcohol) Education Answer Date Recorded Are you interested in more education? Not on natalya e 02/27/2023 Are you concerned about learning? Not on file 02/27/2023 No 02/27/2023 No 02/27/2023 Digital Access Answer Date Recorded No 03/31/2023 No 03/31/2023 Reliable internet access at home? Not on file 03/31/2023 Device with a working camera? Not on file Sex and Gender Information Value Date Recorded Sex Assigned at Not on file Legal Sex Male 7:22 PM EST Gender Identity Not on file Sexual Orientation Not on file Last Filed Vital Signs Vital Sign Reading Time Taken Comments Blood Pressure 134/80 04/14/2025 8:20 AM EDT Pulse 81 04/14/2025 8:20 AM EDT Temperature 36.7 C (98 F) 04/14/2025 8:20 AM EDT Respiratory Rate 16 04/14/2025 8:20 AM EDT Oxygen Saturation 99% 04/14/2025 8:20 AM EDT Inhaled Oxygen Concentration - - Weight 90.7 kg (200 lb) 04/29/2021 11:18 AM EDT Height 188 cm (6' 2 ) 04/29/2021 11:18 AM EDT Body Mass Index 25.68 04/29/2021 11:18 AM EDT Plan of Treatment Health Maintenance Due Date Last Done Comments CREATININE LEVEL 1978 LIPID PANEL 1978 POTASSIUM LEVEL 1978 DEPRESSION SCREENING 1990 HEPATITIS C SCREENING 02/01/1996 HIV ONE-TIME SCREENING (18-6 5 YEARS) 02/01/1996 COLOGUARD 2023 COLONOSCOPY 2023 COLORECTAL CANCER SCREENING 2023 FIT TEST 2023 FOBT 2023 SIGMOIDOSCOPY 2023 VIRTUAL COLONOSCOPY 2023 INFLUENZA VACCINE (#1) 2025 , 09/21/2021, 10/20/2018 COVID-19 VACCINE (2024-2 6 season) 2025 09/21/2021, 03/02/2021, 02/03/2021 BLOOD PRESSURE 10/14/2025 04/14/2025 Adult Td,Tdap Booster 10/20/2028 10/20/2018 SMOKING STATUS SCREENING (On ce After 26 Yrs) Completed 04/14/2025 HEPATITIS A VACCINES Aged Out No long er eligible based on patient's age to complete this topic HIB VACCINES Aged Out No longer eligi ble based on patient's age to complete this topic MENINGOCOCCAL VACCINES (ACWY) Aged Out No longer eligible based on patient's age to complete this topic MENINGOCOCCAL VACCINES (B) Aged Out N o longer eligible based on patient's age to complete this topic PNEUMOCOCCAL VACCINES (0-49 years) Aged Out No longer eligible b ased on patient's age to complete this topic Medical Devices Not on file Insurance [facility] Member Subscriber Plan / Payer (Ef fective 2020-Present) Name:Cipriano Sandoval Relation to Subscriber:Spouse Name:DAMIAN SANDOVAL Date of :1900 (Home) Address: [address] [place] Payer ID:[id number] (NAIC) Type:HMO Address: [address] [place], [place] [facility] Care Teams K 9 Police Officer Relationship Specialty Start Date End Date Jose Maldonado MD [address] [place] [id number] PCP - General 04/29/21 Additional Source Comments The information contained in this document represents components of the legal health record. It is not the complete legal health record.[facility]
[2025-08-18 08:14] VITALS: BP 142/90; PULSE 65; TEMP 36.3; O2SAT 98; BMI 27.6
--- NOTE | 2025-08-18 08:14 | A.OFFPC_ITS ---
Vital Signs 08/18/25 08:14 Height 6 ft 1 in Weight 209 lb BMI 27.6 BP 142/90 H Blood Pressure Location Lt brachial Position Sitting Pulse 65 Pulse Source Pulse Oximeter Temp 97.3 F Temp Source Temporal Artery Scan Pulse Oximetry (%) 98 Oxygen Delivery Method Room Air Intake Visit Reasons: 6 month f/u Allergies No Known Allergies Allergy (Verified 08/18/25 08:17) Tobacco use date assessed: 08/18/25 Dental Screening Dental Screen Date: 08/18/25 Did you have a dental visit in the last 12 months?: Yes Did you have a dental problem in the last 6 months where you did not have access to dental care?: No Was dental information given to patient?: Patient has dentist [facility] Medical History High cholesterol Hypertension Surgical History History of colonoscopy with polypectomy (~09/07/24) Hx of removal of cyst History of vasectomy Family History Father Prostate cancer Past heart attack Mother Stroke Son In good health Son In good health Son In good health Sister In good health Sister In good health Sister In good health Other Substance use disorder Social History Housing: House Alcohol intake: current Alcohol intake frequency: a few times a week Patient Tobacco Use Status: Never used Tobacco e-Cigarette/Vaping Use: Never Used Second Hand Smoke Exposure: No service: No Current occupational status: employed Current occupation: Contractor Current occupational exposures/hazards: No Cognitive needs: No Hearing needs: No Vision needs: Yes (glasses) Questionnaire PHQ-9 Over the last 2 weeks, how often have you been bothered by any of the following problems? 1. Little interest or pleasure in doing things: not at all 2. Feeling down, depressed, or hopeless: not at all 3. Trouble falling or staying asleep, or sleeping too much: not at all 4. Feeling tired or having little energy: not at all 5. Poor appetite or overeating: not at all 6. Feeling bad about yourself - or that you are a failure or have let yourself or your family down: not at all 7. Trouble concentrating on things, such as reading the newspaper or watching television: not at all 8. Moving or speaking so slowly that other people could have noticed. Or the opposite - being so fidgety or restless that you have been moving around a lot more than usual: not at all 9. Thoughts that you would be better off or of hurting yourself in some way: not at all Total score: 0 Source: Developed by Drs. Jurgen Gonsales, Norma Das, Ronni lange nd colleagues, with an educational traci from [employer]. Thrive Questionnaire Date Thrive assessed: 08/17/25 I am a: Patient What is your living situation today?: I have a steady place to live Within the past 12 months, did the food you bought not last and you didn't have the money to get more?: Never true Within the past 12 months, did you worry whether your food would run out before you got money to buy more?: Never true Do you have trouble paying for medicines?: No Do you have trouble getting transportation to medical appointments?: No Do you have trouble paying your heating and electricity bill?: No Do you have trouble taking care of your child, family member or friend?: No Do you have trouble with day-to-day activities such as bathing, preparing meals, shopping, managing finances, etc.?: No Are you currently unemployed and looking for a job?: No Are you interested in more education?: No Please select the resources that you would like help with: None Currently or been in a relationship where the following occur: No concerns reported THRIVE Score: 0 AUDIT C Alcohol Use Questionnaire (AUDIT-C) 1. How often do you have a drink containing alcohol?: 2-3 times a week 2. How many drinks containing alcohol do you have on a typical day when you are drinking?: 1 or 2 3. How often do you have six or more drinks on one occasion?: Never Total Score: 3 ALYCE-7 AMB Questionnaire ALYCE-7 Date ALYCE - 7 assessed: 01/13/25 Feeling nervous, anxious, or on edge: 0 = Not at all Not being able to stop or control worryin = Not at all Worrying too much about different things: 0 = Not at all Trouble relaxin = Not at all Being so restless that it is hard to sit still: 0 = Not at all Becoming easily annoyed or irritable: 0 = Not at all Feeling afraid as if something awful might happen: 0 = Not at all Total ALYCE-7 score (0-4 normal; 5-9 mild; 10-14 moderate; 15-21 severe): 0 Source: Developed by Drs. Jurgen Gonsales, Norma Das, Ronni Nur and colleagues, with an educational traci from [employer]. Physical exam (Primary Care) Vital Signs: Last Vital Signs Temp 97.3 F 08/18/25 08:14 Pulse 65 08/18/25 08:14 BP 142/90 H 08/18/25 08:14 Pulse Ox 98 08/18/25 08:14 Oxygen Delivery Method Room Air 08/18/25 08:14 BMI result Body Mass Index 27.6 Tobacco/Smoking Status: Tobacco use Status Tobacco use date assessed 08/18/25 08/18/25 08:17 Patient Tobacco Use Status Never used Tobacco 08/18/25 08:17 e-Cigarette/Vaping Use Never Used 08/18/25 08:17 PHQ-9: PHQ-9 Score PHQ-9: Total score 0 08/18/25 08:17 Thrive Assessment: Date of Thrive Assessment Date Thrive assessed 08/17/25 08/18/25 08:17 Currently or been in a relationship where the following occur: No concerns reported Coding Level of Care Code Est Pt Level 4 (37606) Complex EM visit Add On G2211 Diagnoses Hypertension I10 Assessment & Plan Assessment & Plan (1) Hypertension: Code(s): I10 - Essential (primary) hypertension Category: Medical Plan: History of Present Illness - The patient is a 45-year-old male presenting for a routine check-up and evaluation of a mole on his back. - The patient reports having a mole on his back that his reminded him to have checked. - The mole was examined and found to be benign in appearance. - The patient has a history of hyperlipidemia and is currently taking atorvastatin once daily. - He also has a history of hypertension, managed with enalapril once daily. - Routine blood work was performed in January, with results within normal limits. - The patient is due for another round of blood work, which will be fasting. - He has not yet received his influenza vaccination for the season and agreed to receive it during this visit. 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 Review of Systems - Dermatological: Reports presence of a mole on the back. - Gastrointestinal: Denies abdominal pain. Physical Exam General: Cooperative and healthy appearing Nutritional Appearance: Well nourished Orientation/consciousness: Patient oriented x3 Limitations: No limitations Head: Normal to inspection General: Appearance normal, both eyes and all related structures Neck: Normal visual inspection Chest: Normal palpation of entire chest wall Respiratory: Lungs clear to auscultation ormal respiratory effort Neurology: Patient oriented x3 Results - Labs: Routine blood work in January, results within normal limits. Plan - Administer influenza vaccination during this visit. - Conduct fasting blood work as ordered for routine monitoring. - Continue atorvastatin for hyperlipidemia and enalapril for hypertension. - Schedule follow-up in six months for routine check-up. Discussion Notes During the visit, I discussed with the patient the benign nature of the moles on his back and reassured him that no further intervention is needed. We reviewed his current medications, atorvastatin and enalapril, and confirmed that he is managing his hyperlipidemia and hypertension effectively. I advised him to continue with his current regimen and scheduled a follow-up in six months. We also discussed the importance of receiving the influenza vaccination, which he agreed to receive today. Additionally, I placed orders for fasting blood work to monitor his health status. Patient Instructions - Receive the influenza vaccination today. - Complete fasting blood work as ordered. - Continue taking atorvastatin and enalapril as prescribed. - Return for a follow-up appointment in six months.
== END 2025-08-18 08:29 | disposition home or self-care (01) ==
LOC: HO.HMCH 08:06
PROVIDERS: PCP Internal Medicine; Visit Provider Internal Medicine
DX: Z23 Encounter for immunization (principal); I10 Essential (primary) hypertension